=== PATIENT | male | born 1990 | race Caucasian/White ===

== ENCOUNTER 2018-07-22 16:30 | Emergency (ER) | payer OTHER ==
[~2018-07-22] VITALS: Ht 175.3 cm; Wt 73.9 kg
--- NOTE | 2018-07-22 16:33 | NUR ---
ANALISA RN: NIL WHEN CALLED FOR TRIAGE
[2018-07-22 16:51] VITALS: BP 133/84
[2018-07-22] MEDS ORDERED: DIPH,PERTUSS(ACELL),TET VAC/PF 0.5 ML IM-VACC ONE ×2 (16:57→17:00)
[2018-07-22] MEDS ORDERED: LIDOCAINE-MPF 1%, 5ML INFIL ONE (17:00)
[2018-07-22] MEDS ORDERED: LIDOCAINE-MPF 1%, 2ML ONE (17:09)
[2018-07-22] MEDS ORDERED: BACITRACIN ZINC OINT 500U/GM, 0.9 GM ONE (18:28)
== END 2018-07-22 18:42 | disposition home or self-care (01) ==
LOC: ED 18:10
DX: S01.412A Laceration without foreign body of left cheek and temporomandibular area, initial encounter (principal); W01.0XXA Fall on same level from slipping, tripping and stumbling without subsequent striking against object, initial encounter; Y93.89 Activity, other specified; Y92.009 Unspecified place in unspecified non-institutional (private) residence as the place of occurrence of the external cause; Y99.8 Other external cause status
CPT/HCPCS: 12052; 70486; 90471; 90715